=== PATIENT | male | born 1940 | race Caucasian/White ===

== ENCOUNTER 2017-10-13 13:05 | Emergency (ER) | payer OTHER, MEDICARE ==
[~2017-10-13] VITALS: Ht 177.8 cm; Wt 143.8 kg
[~2017-10-13 13:05] MED LIST: ASPIR 8181 M1 PO; ASPIRIN81 M2 PO; ATORVASTATIN CA40 MG PO; BISOPROLOL-HCT1 EAC2 PO; BUDEPRION SR100 MG PO; BYSTOLIC10 MG PO; BYSTOLIC20 MG PO; BYSTOLIC5 MG PO; CELEBREX200 MG PO; COQ-10100 MG PO; COUMADIN6 MG PO; Coumadin dosing per PO; ENDOCET 5-3251 EACH PO; FLOMAX0.4 MG PO; FLUOXETINE HCL20 MG PO; FUROSEMIDE20 MG PO; Flexeril PO; HYDROCODON-ACE1 EAC7 PO; KLOR-CON 1010 ME1 PO; KLOR-CON SPRIN10 MEQ PO; LASIX20 MG PO; LASIX40 MG PO; LIPITOR20 MG PO; LO-DOSE ASPIRIN81 M2 PO; LOVENOX120 MG/0.8 SC; MOTRIN600 MG PO; MOTRIN800 MG PO; NORVASC10 MG PO; OMEPRAZOLE40 M1 PO; PERCOCET 5/31 TABLET PO; PLAVIX75 MG PO; PROZAC20 MG PO; PROzac PO; REQUIP1 MG PO; REQUIP3 MG PO; SENOKOT S,PE1 TABLET PO; THERAGRAN1 TABLET PO; Tylenol Regular Stre PO; VIBRAMYCIN100 M2 PO; VITAMIN D-32000 UNIT PO; VITAMIN D31000 UNIT PO; WARFARIN SODIUM2 MG PO; ZESTRIL,PRINIVI10 M1 PO; ZITHROMAX Z-PA250 MG PO; ZOFRAN4 MG PO; Zocor PO
[2017-10-13 14:40] LABS: INTER. NORMALIZED RATIO 4.2
[2017-10-13] MEDS ORDERED: NORCO 10/3251 TABLET PO (17:03)
[2017-10-13 17:19] VITALS: BP 204/80
== END 2017-10-13 17:21 | disposition home or self-care (01) ==
LOC: EME 13:05
PROVIDERS: Physician Assistant
DX: M79.605 Pain in left leg (principal); R79.1 Abnormal coagulation profile; Z86.718 Personal history of other venous thrombosis and embolism; Z86.711 Personal history of pulmonary embolism; Z79.01 Long term (current) use of anticoagulants; I10 Essential (primary) hypertension; F41.9 Anxiety disorder, unspecified; Z87.442 Personal history of urinary calculi; Z95.1 Presence of aortocoronary bypass graft; Z79.82 Long term (current) use of aspirin
CPT/HCPCS: 85610; 93971; 99281; 99283; J3010